=== PATIENT | male | born 1995 | race Caucasian/White ===

== ENCOUNTER 2018-02-28 13:16 | Emergency (ER) | payer SELFPAY ==
[~2018-02-28] VITALS: Ht 182.9 cm; Wt 74.8 kg
[2018-02-28 13:32] VITALS: BP 127/90
== END 2018-02-28 15:00 | disposition home or self-care (01) ==
LOC: ER 13:22
DX: S82.831A Other fracture of upper and lower end of right fibula, initial encounter for closed fracture (principal); W19.XXXA Unspecified fall, initial encounter; Y93.89 Activity, other specified; Y99.8 Other external cause status; Y92.89 Other specified places as the place of occurrence of the external cause
CPT/HCPCS: 29515; 73610

== ENCOUNTER 2019-07-29 01:48 | Emergency (ER) | payer SELFPAY ==
[~2019-07-29] VITALS: Ht 182.9 cm; Wt 70.3 kg
[2019-07-29] MEDS ORDERED: KETOROLAC TROMETH 60MG/2ML VIAL IM ONE (04:45)
[2019-07-29] MEDS ORDERED: methylPREDNISolone SOD SUCC 125 MG/2 ML VL IM ONE (04:45)
[2019-07-29] MEDS ORDERED: cefTRIAXone SOD 1,000 MG VL IM ONE (04:45)
[2019-07-29 05:00] VITALS: BP 134/78
== END 2019-07-29 05:27 | disposition home or self-care (01) ==
LOC: ER 01:50
DX: J03.00 Acute streptococcal tonsillitis, unspecified (principal)
CPT/HCPCS: 96372; 99283; J0696; J1885; J2930

== ENCOUNTER 2021-04-08 10:46 | Emergency (ER) | payer OTHER ==
[~2021-04-08] VITALS: Ht 185.4 cm; Wt 70.3 kg
[2021-04-08] MEDS ORDERED: HYDROcodone-ACET 5/325MG TAB PO ONE (12:00)
[2021-04-08 14:16] VITALS: BP 108/80
== END 2021-04-08 14:19 | disposition home or self-care (01) ==
LOC: ER 10:46
DX: S02.40FA Zygomatic fracture, left side, initial encounter for closed fracture (principal); R11.2 Nausea with vomiting, unspecified; Y04.2XXA Assault by strike against or bumped into by another person, initial encounter; Y93.89 Activity, other specified; Y92.89 Other specified places as the place of occurrence of the external cause; Y99.8 Other external cause status
CPT/HCPCS: 70450; 70486; 72125